=== PATIENT | male | born 1990 | race Two or more races ===

== ENCOUNTER 2018-12-29 13:24 | Emergency (ER) | payer OTHER ==
[2018-12-29 13:27] VITALS: BMI 29.9
[2018-12-29] MEDS ORDERED: VOLTAREN75 MG PO (15:22)
[2018-12-29] MEDS ORDERED: KEFLEX500 MG PO (15:23)
[2018-12-29] MEDS ORDERED: MUPIROCIN22 GM TOPICAL (15:25)
[2018-12-29 15:35] VITALS: BP 122/54
== END 2018-12-29 15:36 | disposition home or self-care (01) ==
LOC: D.ER 13:24
DX: S61.311A Laceration without foreign body of left index finger with damage to nail, initial encounter (principal); W26.9XXA Contact with unspecified sharp object(s), initial encounter; Y93.89 Activity, other specified; Y92.89 Other specified places as the place of occurrence of the external cause